=== PATIENT | male | born 1980 | race Caucasian/White ===

== ENCOUNTER 2021-08-24 22:58 | Emergency (ER) | payer OTHER ==
[~2021-08-24 22:58] MED LIST: AUGMENTIN600 MG/5 M GT; BACLOFEN 20MG T20 MG PO; BUSPIRONE HCL10 MG GT; CATAPRES0.2 MG GT; DONEPEZIL HCL10 MG GT; DRISDOL50000 UNIT PO; LIPITOR40 MG GT; MELATONIN3 MG GT; NEURONTIN300 MG GT; OLANZAPINE10 MG GT; OMEPRAZOLE GT; PROBIOTIC1 EAC1 GT; PROZAC20 MG GT; SENNA LAXATIVE8.6 MG GT; TRAMADOL HCL50 MG GT; VANCO 1 GR1 GM/250 M IV; VENTOLIN HFA IN18 GM INH; ZYPREXA 5MG TABL5 MG GT
== END 2021-08-25 01:07 | disposition home or self-care (01) ==
LOC: FER 22:58
DX: S09.90XA Unspecified injury of head, initial encounter (principal); I10 Essential (primary) hypertension; I69.954 Hemiplegia and hemiparesis following unspecified cerebrovascular disease affecting left non-dominant side; W06.XXXA Fall from bed, initial encounter; Y92.129 Unspecified place in nursing home as the place of occurrence of the external cause
CPT/HCPCS: 70450; 72125; 72128; 72131